=== PATIENT | male | born 1955 | race Two or more races ===

== ENCOUNTER → 2025-05-12 | Outpatient (CLI) | payer MEDICARE, OTHER, SELFPAY ==
[2025-05-12 12:05] LABS: Cardiac Risk Estimate 2.5 RATIO (4.0-6.7); Cholesterol 82 mg/dL (132-200); HDL Cholesterol 33 mg/dL (40-60); LDL Cholesterol,Calculated 35 mg/dL (0-130); Triglycerides 68 mg/dL (30-150)
== END | disposition home or self-care (01) ==
PROVIDERS: PCP Student in an Organized Health Care Education/Training Program; Referring Provider Student in an Organized Health Care Education/Training Program; Visit Provider Student in an Organized Health Care Education/Training Program
DX: R73.03 Prediabetes (principal)
CPT/HCPCS: 36415; 80061

== ENCOUNTER → 2025-05-21 | Outpatient (CLI) | payer MEDICARE, OTHER, SELFPAY ==
[2025-05-26 06:30] LABS: Fecal Globin Result NOT DETECTED (NOT DETECTED)
== END | disposition home or self-care (01) ==
LOC: SLDO 15:40
PROVIDERS: PCP Family Medicine; Referring Provider Student in an Organized Health Care Education/Training Program; Visit Provider Student in an Organized Health Care Education/Training Program
DX: Z12.11 Encounter for screening for malignant neoplasm of colon (principal)
CPT/HCPCS: 82274; G0328